=== PATIENT | male | born 1950 ===

== ENCOUNTER 2019-09-13 14:13 | Emergency (ER) | payer MEDICARE ==
[2019-09-13 14:30] VITALS: BP 133/77
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
--- OUTSIDE RECORDS SUMMARY | 2019-09-13 15:15 | XMS REPORT | Continuity of Care Document ---
:1950 External Reference #:[id number] Author Name Conrad Houston M.D. Address [address] 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 Onset: 08/22/2019 Benign prostatic hyperplasia Conrad Houston M.D. Onset: 05/05/2019 Localized, primary osteoarthritis Iker Daniels M.D. Onset: 04/23/2017 Malaise and fatigue Nam Hobson M.D., [facility] Onset: 01/04/2016 Arthralgia of the lower leg Addy Duran D.OGlynn Onset: 05/30/2014 Mixed hyperlipidemia Nam Hobson M.D., [facility] Onset: 12/31/2015 Social History Type Date Description Comments Sex Unknown Tobacco Use Start: Unknown End: Former Cigarette Smoker 1 pack /weekly - 46 Unknown years ETOH Use Currently consumes alcohol Tobacco Use Start: Unknown End: Patient is a former Unknown smoker Recreational Drug Use Denies Drug Use Smoking Status Reviewed: 08/22/19 Patient is a former smoker Allergies, Adverse Reactions, Alerts Description No Known Drug Allergies Medications Active Medications SIG Qnty Indications Ordering Provider Date Furosemide take 1 pill 4tabs Conrad Houston, 05/31/2019 20mg Tablets every 12 hours M.D. Allopurinol 1 by mouth every Unknown 300mg Tablets day Simvastatin 1 by mouth every Unknown 40mg Tablets day Vitamin D3 1 by mouth every Unknown 1000Unit day Capsules History Medications Uribel 1 tab by mouth up to 3caps Conrad Houston, 06/02/2019 - 118mg four times a day emmanuel 1 M.D. 06/03/2019 Capsules Gentamicin Sulfate given once in office 2ml Conrad Houston, 05/30/2019 - for in office M.D. 06/01/2019 40mg/ml Solution procedure. given intramuscular - 80 mg Cefdinir 1 tablet by mouth 4caps Conrad Houston, 05/30/2019 - 300mg given in office before M.D. 06/02/2019 Capsules procedure with take home pack and instructions Medications Administered in Office Medication SIG Qnty Indications Ordering Provider Date Injection Gentamicin To Conrad Houston M.D. 05/31/2019 80MG/2ML Injection Depomedrol 40mg/1cc Addy Duran DDebo 05/30/2014 (methylprednisolone acetate) Injection Immunizations Description No Information Available Vital Signs Date Vital Result Comment 08/22/2019 1:23pm BP Systolic Sitting Left Arm 145 mmHg BP Diastolic Sitting Left Arm 86 mmHg Body Temperature 97.7 F Heart Rate 86 /min Respiratory Rate 16 /min Weight 185.00 lb Pain Level 0 O2 % BldC Oximetry 97 % 06/06/2019 3:55pm BP Systolic Sitting Left Arm 127 mmHg BP Diastolic Sitting Left Arm 82 mmHg Body Temperature 96.7 F Heart Rate 79 /min Respiratory Rate 16 /min Pain Level 0 O2 % BldC Oximetry 97 % Results Test Acquired Date Facility Test Result H/L Range Note Urine Dipstick 08/22/2019 [facility] Inhouse Ua Color Yellow Yellow Ua Clarity Clear Clear Ua Leuko Negative Negative Ua Nitrite Negative Negative Ua Urobilinogen 0.2 0.2 - 1.0 E.U./dL Ua Protein Negative Negative Ua PH 6.0 Low 6.5-7.5 Ua Blood Negative Negative Ua Specific [place] 1.025 1.010-1.030 Ua Ketones Negative Negative Ua Bilirubin Negative Negative Ua Glucose Negative Negative Urine Dipstick 06/06/2019 [facility] Inhouse Ua Color Tea Color Yellow Ua Clarity Clear Clear Ua Leuko Negative Negative Ua Nitrite Negative Negative Ua Urobilinogen 0.2 0.2 - 1.0 E.U./dL Ua Protein 30 High Negative Ua PH 6.0 Low 6.5-7.5 Ua Blood 200 High Negative Ua Specific [place] 1.020 1.010-1.030 Ua Ketones Negative Negative Ua Bilirubin Negative Negative Ua Glucose Negative Negative Urine Dipstick 05/31/2019 [facility] Inhouse Ua Color yellow Yellow Ua Clarity clear Clear Ua Leuko negative Negative Ua Nitrite negative Negative Ua Urobilinogen 0.2 0.2 - 1.0 E.U./dL Ua Protein negative Negative Ua PH 6.0 Low 6.5-7.5 Ua Blood negative Negative Ua Specific [place] 1.025 1.010-1.030 Ua Ketones negative Negative Ua Bilirubin negative Negative Ua Glucose negative Negative Urine Dipstick 05/05/2019 [facility] Inhouse Ua Color yellow Yellow Ua Clarity clear Clear Ua Leuko neg Negative Ua Nitrite neg Negative Ua Urobilinogen 0.2 0.2 - 1.0 E.U./dL Ua Protein neg Negative Ua PH 6.0 Low 6.5-7.5 Ua Blood neg Negative Ua Specific [place] 1.020 1.010-1.030 Ua Ketones neg Negative Ua Bilirubin neg Negative Ua Glucose neg' Negative Urine Dipstick 04/28/2019 [facility] Inhouse Ua Color yellow Yellow Ua Clarity clear Clear Ua Leuko neg Negative Ua Nitrite neg Negative Ua Urobilinogen 0.2 0.2 - 1.0 E.U./dL Ua Protein neg Negative Ua PH 7.0 6.5-7.5 Ua Blood neg Negative Ua Specific [place] 1.010 1.010-1.030 Ua Ketones neg Negative Ua Bilirubin neg Negative Ua Glucose neg Negative Procedures Date Code Description Status 06/06/2019 29718 Measurement Post Voiding Residual Urine By Completed Ultrasound,Non-Imaging 06/02/2019 51958 Measurement Post Voiding Residual Urine By Completed Ultrasound,Non-Imaging 06/02/2019 66444 complex uroflowmetry electronic Completed 05/31/2019 55237 Theraputic Or Diagnostic Injection Completed 05/31/2019 11037 Ultrasound Transrectal Completed 05/31/2019 03638 Cystourethroscopy Each Additional Permanent Adj Implant Completed 05/31/2019 25915 Cystourethroscopy W/ Insert Permanent Adj Completed Transprostatic Implant 05/05/2019 69024 Ultrasound Transrectal Completed 05/05/2019 50352 Cystoscopy Completed 05/05/2019 83644 Measurement Post Voiding Residual Urine By Completed Ultrasound,Non-Imaging 04/28/2019 21804 Measurement Post Voiding Residual Urine By Completed Ultrasound,Non-Imaging 04/28/2019 77830 complex uroflowmetry electronic Completed 06/20/2013 76195742 Colonoscopy Completed Medical Devices Description No Information Available Encounters Type Date Location Provider Dx Diagnosis Office Visit 06/02/2019 Urology Conrad Houston, N40.1 Benign prostatic 11:30a M.D. hyperplasia with lower urinary tract symp Office Visit 06/01/2019 Urology Conrad Houston N40.1 Benign prostatic 9:00a M.D. hyperplasia with lower urinary tract symp Office Visit 05/05/2019 Urology Conrad Houston, N40.1 Benign prostatic 2:00p M.D. hyperplasia with lower urinary tract symp Office Visit 04/28/2019 Urology Shashi Luna, R97.20 Elevated prostate 9:00a PA specific antigen [PSA] N40.1 Benign prostatic hyperplasia with lower urinary tract symp Assessments Date Code Description Provider 08/22/2019 N40.1 Benign prostatic hyperplasia with lower Conrad Houston M.D. urinary tract symptoms 08/22/2019 R35.1 Nocturia Conrad Houston M.D. 08/22/2019 F52.21 Male erectile disorder Conrad Houston M.D. 06/06/2019 N40.1 Benign prostatic hyperplasia with lower Cornad Houston M.D. urinary tract symptoms 06/02/2019 N40.1 Benign prostatic hyperplasia with lower Conrad Houston M.D. urinary tract symptoms 06/01/2019 N40.1 Benign prostatic hyperplasia with lower Conrad Houston M.D. urinary tract symptoms 05/31/2019 N40.1 Benign prostatic hyperplasia with lower Conrad Houston M.D. urinary tract symptoms 05/05/2019 N40.1 Benign prostatic hyperplasia with lower Conrad Houston M.D. urinary tract symptoms 04/28/2019 R97.20 Elevated prostate specific antigen [PSA] Shashi Luna, PA 04/28/2019 N40.1 Benign prostatic hyperplasia with lower Shashi Luna PA urinary tract symptoms Plan of Treatment Future Appointment(s):08/21/2020 1:00 pm - Conrad Houston M.D. at Urology Functional Status Description No Information Available Mental Status Description No Information Available Referrals Description No Information Available
--- OUTSIDE RECORDS SUMMARY | 2019-09-13 15:15 | XMS REPORT | Continuity of Care Document ---
:1950 External Reference #:[id number] Author Name Conrad Houston M.D. 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 Onset: 08/22/2019 Benign prostatic hyperplasia Conrad Houston M.D. Onset: 05/05/2019 Localized, primary osteoarthritis Iker Daniels M.D. Onset: 04/23/2017 Malaise and fatigue Nam Hobson M.D., [facility] Onset: 01/04/2016 Arthralgia of the lower leg Addy Duran, D.OGlynn Onset: 05/30/2014 Mixed hyperlipidemia Nam Hobson M.D., [facility] Onset: 12/31/2015 Social History Type Date Description [...] Medications SIG Qnty Indications Ordering Provider Date Toviaz 1 tab by mouth 30tabs Conrad Houston, 08/23/2019 4mg Tablets ER once a day M.D. 24HR Furosemide take 1 pill 4tabs Conrda Houston, 05/31/2019 20mg Tablets every 12 hours M.D. Allopurinol 1 by mouth Unknown 300mg Tablets every day Simvastatin 1 by mouth Unknown 40mg Tablets every day Vitamin D3 1 by mouth Unknown 1000Unit every day Capsules History Medications Uribel 1 tab [...] M.D. 05/31/2019 80MG/2ML Injection Depomedrol 40mg/1cc Addy Duran, D.OGlynn 05/30/2014 (methylprednisolone acetate) Injection Immunizations Description No [...] Result H/L Range Note Urine Dipstick 08/22/2019 [facility] Inhouse Ua Color Yellow Yellow Ua Clarity Clear Clear Ua Leuko Negative Negative Ua Nitrite Negative Negative Ua Urobilinogen 0.2 0.2 - 1.0 E.U./dL Ua Protein Negative Negative Ua PH 6.0 Low 6.5-7.5 Ua Blood Negative Negative Ua Specific [place] 1.025 1.010-1.030 Ua Ketones Negative Negative Ua Bilirubin Negative Negative Ua Glucose Negative Negative Urine Dipstick 06/06/2019 [facility] Inhouse Ua Color Tea Color Yellow Ua Clarity Clear Clear Ua Leuko Negative Negative Ua Nitrite Negative Negative Ua Urobilinogen 0.2 0.2 - 1.0 E.U./dL Ua Protein 30 High Negative Ua PH 6.0 Low 6.5-7.5 Ua Blood 200 High Negative Ua Specific [place] 1.020 1.010-1.030 Ua Ketones Negative Negative Ua Bilirubin Negative Negative Ua Glucose Negative Negative Urine Dipstick 05/31/2019 [facility] Inhouse Ua Color yellow Yellow Ua Clarity clear Clear Ua Leuko negative Negative Ua Nitrite negative Negative Ua Urobilinogen 0.2 0.2 - 1.0 E.U./dL Ua Protein negative Negative Ua PH 6.0 Low 6.5-7.5 Ua Blood negative Negative Ua Specific [place] 1.025 1.010-1.030 Ua Ketones negative Negative Ua Bilirubin negative Negative Ua Glucose negative Negative Urine Dipstick 05/05/2019 [facility] Inhouse Ua Color yellow Yellow Ua Clarity clear Clear Ua Leuko neg Negative Ua Nitrite neg Negative Ua Urobilinogen 0.2 0.2 - 1.0 E.U./dL Ua Protein neg Negative Ua PH 6.0 Low 6.5-7.5 Ua Blood neg Negative Ua Specific [place] 1.020 1.010-1.030 Ua Ketones neg Negative Ua Bilirubin neg Negative Ua Glucose neg' Negative Urine Dipstick 04/28/2019 [facility] Inhouse Ua Color yellow Yellow Ua Clarity clear Clear Ua Leuko neg Negative Ua Nitrite neg Negative Ua Urobilinogen 0.2 0.2 - 1.0 E.U./dL Ua Protein neg Negative Ua PH 7.0 6.5-7.5 Ua Blood neg Negative Ua Specific [place] 1.010 1.010-1.030 Ua Ketones neg Negative Ua Bilirubin neg Negative Ua Glucose neg Negative Procedures Date Code Description Status 08/22/2019 78564 Measurement Post Voiding Residual Urine By Completed Ultrasound,Non-Imaging 08/22/2019 58657 complex uroflowmetry electronic Completed 06/06/2019 30544 Measurement Post Voiding Residual Urine By Completed Ultrasound,Non-Imaging 06/02/2019 73372 Measurement Post Voiding Residual Urine By Completed Ultrasound,Non-Imaging 06/02/2019 48121 complex uroflowmetry electronic Completed 05/31/2019 07673 Theraputic Or Diagnostic Injection Completed 05/31/2019 00928 Ultrasound Transrectal Completed 05/31/2019 70910 Cystourethroscopy Each Additional Permanent Adj Implant Completed 05/31/2019 35867 Cystourethroscopy W/ Insert Permanent Adj Completed Transprostatic Implant 05/05/2019 74262 Ultrasound Transrectal Completed 05/05/2019 66025 Cystoscopy Completed 05/05/2019 85207 Measurement Post Voiding Residual Urine By Completed Ultrasound,Non-Imaging 04/28/2019 08120 Measurement Post Voiding Residual Urine By Completed Ultrasound,Non-Imaging 04/28/2019 22796 complex uroflowmetry electronic Completed 06/20/2013 76591206 Colonoscopy Completed Medical Devices Description No Information Available Encounters Type Date Location Provider Dx Diagnosis Office Visit 08/22/2019 Urology Conrad Houston, N40.1 Benign prostatic 1:30p M.D. hyperplasia with lower urinary tract symp R35.1 Nocturia F52.21 Male erectile disorder Office Visit 06/02/2019 11:30a Urology Conrad Houston N40.1 Benign prostatic M.D. hyperplasia with lower urinary tract symp Office Visit 06/01/2019 9:00a Urology Conrad Houston N40.1 Benign prostatic M.D. hyperplasia with lower urinary tract symp Office Visit 05/05/2019 2:00p Urology Conrad Houston N40.1 Benign prostatic M.D. hyperplasia with lower urinary tract symp Office Visit 04/28/2019 9:00a Urology Shashi Luna R97.20 Elevated prostate R., PA specific antigen [PSA] N40.1 Benign prostatic hyperplasia with lower urinary tract symp Assessments Date Code Description Provider 08/22/2019 N40.1 Benign prostatic hyperplasia with lower Conrad Houston M.D. urinary tract symptoms 08/22/2019 R35.1 Nocturia Conrad Houston M.D. 08/22/2019 F52.21 Male erectile disorder Conrad Houston M.D. 06/06/2019 N40.1 Benign prostatic hyperplasia with lower Conrad Houston M.D. urinary tract symptoms 06/02/2019 N40.1 [...] R97.20 Elevated prostate specific antigen [PSA] Shashi Luna PA 04/28/2019 N40.1 Benign prostatic hyperplasia with lower Shashi Luna PA urinary tract symptoms Plan of Treatment Future Appointment(s):08/21/2020 1:00 pm - Conrad Houston M.D. at Urology Functional Status Description No Information Available Mental Status Description No Information Available Referrals Description No Information Available
== END 2019-09-13 15:15 | disposition home or self-care (01) ==
LOC: UCCORT 14:13
DX: R42 Dizziness and giddiness (principal); R26.81 Unsteadiness on feet; R60.0 Localized edema; Z87.891 Personal history of nicotine dependence
CPT/HCPCS: 99212; G0463

== ENCOUNTER 2021-12-13 06:43 | Inpatient (IN) ==
[~2021-12-13 06:43] MED LIST: Buffered Lidocaine 1% SYRIN 1 ml INTRADERM ONE; Lactated Ringers 1000 ml BAG 1,000 ML IV SCH
[2021-12-13] MEDS ORDERED: ceFAZolin 2 GM in NS PREMIX 2 GM/100 ML BAG IVPB ONE (07:54)
[2021-12-13] MEDS ORDERED: Midazolam 2 mg/2 ml VIAL 1 mg/ml 2 ml VIAL (2 mg) ONE (08:30)
[2021-12-13] MEDS ORDERED: Lidocaine 1% MPF 5 ML VIAL ONE (08:35)
[2021-12-13] MEDS ORDERED: Lidocaine 1% 50 ML MDV VIAL ONE (08:52)
[2021-12-13] MEDS ORDERED: Propofol 10 MG/ML 20 ML BTL ONE ×2 (10:04→10:52)
[2021-12-13] MEDS ORDERED: Naloxone 0.4 mg VIAL 0.4 mg/ml 1 ml VIAL IV PRN (10:21)
[2021-12-13] MEDS ORDERED: Acetaminophen IV 1 GM/100ML 100 ML IV PRN (10:21)
[2021-12-13] MEDS ORDERED: HYDROmorphone 1 MG/1 ML SYRINGE IV PRN (10:21)
[2021-12-13] MEDS ORDERED: fentaNYL 100 mcg/2 ml 50 MCG/ML VIAL IV PRN (10:21)
[2021-12-13] MEDS ORDERED: Ondansetron 4 mg VIAL 2 MG/ML 2 ml VIAL IV PRN ×2 (10:21→11:11)
[2021-12-13] MEDS ORDERED: Acetaminophen IV 1 GM/100ML 100 ML IV ONE (10:23)
[2021-12-13] MEDS ORDERED: Dexamethasone IV 4 MG/ML VIAL 1 ml VIAL ONE (10:52)
[2021-12-13] MEDS ORDERED: Ondansetron 4 mg VIAL 2 MG/ML 2 ml VIAL ONE (10:52)
[2021-12-13] MEDS ORDERED: Lidocaine 2% PF 5 ML VIAL ONE (10:52)
[2021-12-13] MEDS ORDERED: Phenylephrine IV 10 MG/ML 1 ml VIAL ONE (10:52)
[2021-12-13] MEDS ORDERED: Lactulose 30 ml UDC PO PRN (11:11)
[2021-12-13] MEDS ORDERED: Magnesium Hydroxide LIQ 30 ML UDC PO PRN (11:11)
[2021-12-13] MEDS ORDERED: Ondansetron ODT 4 mg TAB 4 MG TAB PO PRN (11:11)
[2021-12-13] MEDS ORDERED: Morphine 2 MG/ML SYRINGE IV PRN (11:17)
[2021-12-13] MEDS ORDERED: ceFAZolin 1 GM ADVAN 1 GM in NS 0.9% 50 ML 50 ML IVPB SCH (12:00)
[2021-12-13] MEDS: Lactated Ringers 1000 ml BAG 1,000 ML IV SCH (14:55)
[2021-12-13] MEDS: ceFAZolin 1 GM ADVAN 1 GM in NS 0.9% 50 ML 50 ML IVPB SCH (18:02)
[2021-12-13] MEDS: Magnesium Hydroxide LIQ 30 ML UDC PO SCH (20:56)
[2021-12-14] MEDS: Lactated Ringers 1000 ml BAG 1,000 ML IV SCH (02:57)
[2021-12-14] MEDS: ceFAZolin 1 GM ADVAN 1 GM in NS 0.9% 50 ML 50 ML IVPB SCH ×2 (02:57→09:19)
[2021-12-14 05:49] LABS: Hematocrit 31 % (42-52); Hemoglobin 10.4 g/dL (14.0-18.0); Platelet Count 114 10^3/uL (150-450)
[2021-12-14 06:28] LABS: Calcium 8.8 mg/dL (8.6-10.3); Potassium 4.2 mmol/L (3.5-5.0); eGFR CKD-EPI 95.9 (>60)
[2021-12-14 07:26] VITALS: BP 149/80
[2021-12-14] MEDS ORDERED: Vitamin THERAPEUTIC TAB PO SCH (09:00)
[2021-12-14] MEDS: Magnesium Hydroxide LIQ 30 ML UDC PO SCH (09:17)
== END 2021-12-14 12:22 | disposition home or self-care (01) | DRG 470 ==
LOC: INTOOBSV 06:43 → SSU 06:43
PROVIDERS: ADMIT Orthopaedic Surgery Adult Reconstructive Orthopaedic Surgery; ATTEND Orthopaedic Surgery Adult Reconstructive Orthopaedic Surgery

== ENCOUNTER 2021-12-18 19:39 | Inpatient (IN) ==
[2021-12-18 23:41] LABS: Hematocrit 23 % (42-52); Hemoglobin 7.6 g/dL (14.0-18.0); Mean Corpuscular HGB Conc 34 g/dL (31-36); Mean Corpuscular Hemoglobin 29 pg (27-31); Mean Corpuscular Volume 86 fL (80-94); Mean Platelet Volume 7.8 fL (7.4-10.4); Platelet Count 138 10^3/uL (150-450); Red Blood Count 2.62 10^6 /uL (4.18-5.48); Red Cell Distribution Width 16 % (10-15); White Blood Count 4.7 10^3/uL (3.5-10.8)
[2021-12-18 23:48] LABS: INR 1.29 (0.86-1.15)
[2021-12-19 00:35] LABS: Albumin 3.2 g/dL (3.2-5.2); Albumin/Globulin Ratio 1.2 (1-3); C Reactive Protein 247.57 mg/L (<8.01); Globulin 2.7 g/dL (2-4); Total Bilirubin 0.7 mg/dL (0.2-1.0); Total Protein 5.9 g/dL (6.4-8.9); eGFR CKD-EPI 97.9 (>60)
[2021-12-19 01:04] LABS: Erythrocyte Sed Rate > 120 mm/Hr (0-19)
[2021-12-19 01:42] LABS: ABS Lymphocytes 0.8 10^3/ul (1.0-4.8); ABS Monocytes 0.5 10^3/ul (0-0.8); ABS Neutrophils 3.3 10^3/ul (1.5-7.7); Eosinophil % 0.8 %; Lymphocyte % 17.5 %; Nucleated Red Blood Cells % 0.1
[2021-12-19 07:40] LABS: Body Fluid WBC 12523 /mcL
[2021-12-19 08:55] LABS: Body Fluid Appearance Bloody
[2021-12-19 08:56] LABS: Body Fluid Color Red
[2021-12-19 08:58] LABS: Body Fluid Mono 2 %; Body Fluid Total Cells Counted 200
[2021-12-19 09:29] LABS: Body Fluid Source Synovial Fluid
[2021-12-19] MEDS: Cholecalciferol (VIT D3) 1,000 unit TAB PO SCH (11:17)
[2021-12-19] MEDS ORDERED: Enoxaparin 40 MG/0.4 ML SYR SUBCUT SCH (12:00)
[2021-12-19] MEDS: NS 0.9% 1000 ml BAG 1,000 ML IV SCH (17:48)
[2021-12-20] MEDS: NS 0.9% 1000 ml BAG 1,000 ML IV SCH ×2 (03:44→16:02)
[2021-12-20 05:54] LABS: ABS Lymphocytes 0.7 10^3/ul (1.0-4.8); ABS Monocytes 0.5 10^3/ul (0-0.8); ABS Neutrophils 2.5 10^3/ul (1.5-7.7); Eosinophil % 1.2 %; Hematocrit 19 % (42-52); Hemoglobin 6.4 g/dL (14.0-18.0); Lymphocyte % 19.9 %; Mean Corpuscular HGB Conc 34 g/dL (31-36); Mean Corpuscular Hemoglobin 30 pg (27-31); Mean Corpuscular Volume 87 fL (80-94); Mean Platelet Volume 8.4 fL (7.4-10.4); Nucleated Red Blood Cells % 0.2; Platelet Count 143 10^3/uL (150-450); Red Blood Count 2.15 10^6 /uL (4.18-5.48); Red Cell Distribution Width 17 % (10-15); White Blood Count 3.8 10^3/uL (3.5-10.8)
[2021-12-20 06:14] LABS: Calcium 7.7 mg/dL (8.6-10.3); Potassium 4.2 mmol/L (3.5-5.0); eGFR CKD-EPI 102.3 (>60)
[2021-12-20 07:24] LABS: C Reactive Protein 168.5 mg/L (<8.01)
[2021-12-20 07:38] LABS: Erythrocyte Sed Rate > 120 mm/Hr (0-19)
[2021-12-20] MEDS: Cholecalciferol (VIT D3) 1,000 unit TAB PO SCH (09:23)
[2021-12-20 12:02] LABS: Hematocrit 23 % (42-52); Hemoglobin 7.7 g/dL (14.0-18.0)
[2021-12-21] MEDS: NS 0.9% 1000 ml BAG 1,000 ML IV SCH (05:10)
[2021-12-21 08:45] LABS: Hematocrit 23 % (42-52); Hemoglobin 7.7 g/dL (14.0-18.0); Mean Corpuscular HGB Conc 34 g/dL (31-36); Mean Corpuscular Hemoglobin 29 pg (27-31); Mean Corpuscular Volume 86 fL (80-94); Mean Platelet Volume 7.9 fL (7.4-10.4); Platelet Count 147 10^3/uL (150-450); Red Blood Count 2.61 10^6 /uL (4.18-5.48); Red Cell Distribution Width 16 % (10-15); White Blood Count 3.6 10^3/uL (3.5-10.8)
[2021-12-21] MEDS: Cholecalciferol (VIT D3) 1,000 unit TAB PO SCH (09:09)
[2021-12-21 11:16] LABS: ABS Lymphocytes 0.9 10^3/ul (1.0-4.8); ABS Monocytes 0.5 10^3/ul (0-0.8); ABS Neutrophils 2.1 10^3/ul (1.5-7.7); Acanthocytes 1+; Anisocytosis 1+; Eosinophil % 0.8 %; Lymphocyte % 24.2 %; Nucleated Red Blood Cells % 0.1; Polychromasia 1+
[2021-12-22] MEDS: Cholecalciferol (VIT D3) 1,000 unit TAB PO SCH (08:59)
[2021-12-22] MEDS ORDERED: Polyethylene Glycol 3350 17 GM PACKET PO PRN (09:02)
[2021-12-22] MEDS: Magnesium Hydroxide LIQ 30 ML UDC PO PRN ×2 (10:18→17:16)
[2021-12-22 10:45] LABS: Hematocrit 26 % (42-52); Hemoglobin 8.3 g/dL (14.0-18.0); Mean Corpuscular HGB Conc 32 g/dL (31-36); Mean Corpuscular Hemoglobin 29 pg (27-31); Mean Corpuscular Volume 91 fL (80-94); Mean Platelet Volume 8.5 fL (7.4-10.4); Platelet Count 156 10^3/uL (150-450); Red Blood Count 2.85 10^6 /uL (4.18-5.48); Red Cell Distribution Width 17 % (10-15); White Blood Count 3.2 10^3/uL (3.5-10.8)
[2021-12-22 11:06] LABS: ABS Lymphocytes 0.8 10^3/ul (1.0-4.8); ABS Monocytes 0.6 10^3/ul (0-0.8); ABS Neutrophils 1.7 10^3/ul (1.5-7.7); Eosinophil % 0.9 %; Lymphocyte % 24.8 %; Nucleated Red Blood Cells % 0.3
[2021-12-23 05:59] LABS: ABS Lymphocytes 0.9 10^3/ul (1.0-4.8); ABS Monocytes 0.7 10^3/ul (0-0.8); ABS Neutrophils 2.4 10^3/ul (1.5-7.7); Hematocrit 24 % (42-52); Lymphocyte % 22.8 %; Mean Corpuscular HGB Conc 33 g/dL (31-36); Mean Corpuscular Hemoglobin 28 pg (27-31); Mean Corpuscular Volume 86 fL (80-94); Mean Platelet Volume 8.1 fL (7.4-10.4); Nucleated Red Blood Cells % 0.5; Platelet Count 185 10^3/uL (150-450); Red Blood Count 2.82 10^6 /uL (4.18-5.48); Red Cell Distribution Width 17 % (10-15); White Blood Count 4.1 10^3/uL (3.5-10.8)
[2021-12-23] MEDS: Cholecalciferol (VIT D3) 1,000 unit TAB PO SCH (09:46)
[2021-12-23] MEDS: Enoxaparin 40 MG/0.4 ML SYR SUBCUT SCH (12:48)
[2021-12-24 06:10] LABS: ABS Monocytes 0.6 10^3/ul (0-0.8); ABS Neutrophils 1.8 10^3/ul (1.5-7.7); Eosinophil % 1.1 %; Hematocrit 23 % (42-52); Hemoglobin 7.7 g/dL (14.0-18.0); Lymphocyte % 27.7 %; Mean Corpuscular HGB Conc 34 g/dL (31-36); Mean Corpuscular Hemoglobin 30 pg (27-31); Mean Corpuscular Volume 86 fL (80-94); Mean Platelet Volume 8.1 fL (7.4-10.4); Nucleated Red Blood Cells % 0.2; Platelet Count 182 10^3/uL (150-450); Red Blood Count 2.62 10^6 /uL (4.18-5.48); Red Cell Distribution Width 16 % (10-15); White Blood Count 3.4 10^3/uL (3.5-10.8)
[2021-12-24] MEDS: Cholecalciferol (VIT D3) 1,000 unit TAB PO SCH (07:45)
[2021-12-24] MEDS: Enoxaparin 40 MG/0.4 ML SYR SUBCUT SCH (12:13)
[2021-12-24 21:31] LABS: Urine Appearance Clear; Urine Bilirubin Negative (Negative); Urine Blood Trace (Intact) (Negative); Urine Color Yellow; Urine Glucose Negative (Negative); Urine Ketones Negative (Negative); Urine Nitrite Negative (Negative); Urine Protein Negative (Negative); Urine Urobilinogen 1.0 (Negative) (Negative)
[2021-12-24 22:00] LABS: Urine Bacteria Absent (Absent); Urine Red Blood Cell Trace(0-2/hpf) (Absent); Urine Squamous Epithelial Cell Present (Absent); Urine White Blood Cell 1+(6-10/hpf) (Absent)
[2021-12-25] MEDS: Magnesium Hydroxide LIQ 30 ML UDC PO PRN (09:04)
[2021-12-25] MEDS: Cholecalciferol (VIT D3) 1,000 unit TAB PO SCH (09:05)
[2021-12-25 10:22] LABS: Rapid COVID-19 Molecular Undetected (Undetected)
[2021-12-25 11:25] VITALS: BP 104/54
[2021-12-25] MEDS: Enoxaparin 40 MG/0.4 ML SYR SUBCUT SCH (12:11)
[2021-12-25 23:54] LABS: Hepatitis B Surface Antigen Nonreactive (Nonreactive)
[2021-12-25 23:59] LABS: Hepatitis A Ab IgM Negative (Negative); Hepatitis B Core IgM Nonreactive (Nonreactive)
[2021-12-26 00:11] LABS: Hepatitis C Antibody Negative (Negative)
== END 2021-12-25 12:55 | DRG 948 ==
LOC: EDHOLD 19:39 → ED 19:39 → SSU 12-19 01:43
PROVIDERS: ADMIT Orthopaedic Surgery; ATTEND Orthopaedic Surgery